=== PATIENT | male | born 1955 | race Caucasian/White ===

== ENCOUNTER 2019-02-19 18:25 | Inpatient (IN) | payer BC, OTHER, SELFPAY ==
[2019-02-19] MEDS ORDERED: Adacel (T-DAP) 0.5 ML SYRINGE ONE ×2 (18:31→19:26)
[2019-02-19 18:47] LABS: #Basophils 0.1 thou/uL (0.0-0.2); #Eosinphils 0.1 thou/uL (0.0-0.7); #Lymphocytes 5.1 thou/uL (1.20-3.40); #Monocytes 0.5 thou/uL (0.11-0.59); #Neutrophils 12.1 thou/uL (1.40-6.50); %Basophils 0.5 % (0.0-1.0); %Eosinophils 0.6 % (0.0-10.0); %Lymphocytes 28.6 % (21.0-51.0); %Monocytes 2.8 % (0.0-10.0); %Neutrophils 67.4 % (42.0-75.0); Hemoglobin 16.1 g/dL (14.0-18.0); Mean Corpuscular HGB CONC 33.2 g/dL (32.0-36.0); Mean Corpuscular Hemoglobin 29.3 pg (27.0-31.0); Mean Corpuscular Volume 88.2 fL (78.0-98.0); Mean Platelet Volume 7.7 fL (7.4-10.4); Platelet Count 306 thou/uL (130-400); RBC Distribution Width 12.2 % (11.5-14.5); Red Blood Cell (RBC) Count 5.52 mill/uL (4.70-6.10); White Blood Cell (WBC) Count 17.9 thou/uL (4.8-10.8)
--- NOTE | 2019-02-19 18:53 | CT ---
Head CT without contrast 02/19/2019: Comparison: None HISTORY: Injury, trauma, pain TECHNIQUE: Axial CT imaging at 5 mm intervals from vertex through skull base without contrast FINDINGS: The imaged paranasal sinuses and mastoid air cells are well-aerated. No displaced calvarial fracture. No intracranial hemorrhage, midline shift, or mass effect. IMPRESSION: No acute findings. Results called to Dr. Mart at 6:50 PM 02/19/2019
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
--- NOTE | 2019-02-19 18:57 | RAD ---
Portable frontal chest radiograph: 02/19/2019 COMPARISON: None HISTORY: Injury, trauma, pain FINDINGS: Lungs are clear. Heart and mediastinal contours appear within normal limits. There is eleva tion of the right hemidiaphragm. Supine imaging limits assessment for pneumothorax and pleural fluid. IMPRESSION: No acute findings.
[2019-02-19 19:01] LABS: Acetaminophen Less than 6.0 mcg/mL (10.0-30.0); Alcohol Less than 10 mg/dL (Less than 10); Salicylate Less than 8.0 mg/dL (15.0-30.0)
[2019-02-19 19:09] LABS: ALT (SGPT) 38 U/L (8-55); AST (SGOT) 27 U/L (5-34); Albumin 4.7 g/dL (3.4-4.8); Alkaline Phosphatase 86 U/L (40-110); Anion Gap 19 mmol/L (10-20); BUN (Urea Nitrogen) 20 mg/dL (8.4-25.7); Bilirubin, Total 0.4 mg/dL (0.2-1.2); Calc. Creatinine Clearance 0 mL/min (70-130); Calcium 8.8 mg/dL (7.8-10.44); Carbon Dioxide 18 mmol/L (23-31); Chloride 103 mmol/L (98-107); Estimated GFR-MDRD 49; Globulin 3.5 g/dL (2.4-3.5); Glucose 186 mg/dL (80-115); Potassium 3.9 mmol/L (3.5-5.1); Protein, Total 8.2 g/dL (5.8-8.1); Sodium 136 mmol/L (136-145)
--- NOTE | 2019-02-19 19:23 | CT ---
CT OF CHEST, ABDOMEN AND PELVIS, THORACIC SPINE, LUMBAR SPINE: 02/19/19 COMPARISON: None. HISTORY: Injury, trauma, pain. TECHNIQUE: Axial CT imaging obtained at 5 mm intervals from the thoracic inlet through the pubic symphysis with IV contrast. Coronal and sagittal reformatted imaging obtained. FINDINGS: No lymphadenopathy is appreciated within the chest. The vascular structures of the chest appear paten t. No pneumothorax is evident on either side. There is mild linear density within the posterior inferior aspect of bilateral lower lobes suggesting volume loss. Incidental note is made of a pulmonary nodule within the lateral aspect of the left upper lobe inferi gary on image 37 measuring approximately 7 mm. No endobronchial lesion is evident on this exam. The extraspinal osseous structures of the chest demonstrate no acute findings. No free intraperitoneal air or fluid. There are a few scattered tiny hypodensities within the right lobe of the liver, too small to charact erize. No evidence for splenic or hepatic laceration. Gallbladder unremarkable. Pancreas and adrenal glands are unremarkable. Bilateral kidneys are unremarkable. There is a fat containing inguinal iveth ia on the right. Limited assessment of the bowel without oral contrast media appears grossly unremarkable. The vascula r structures of the abdomen/pelvis appear patent. There is scattered atherosclerotic calcification o f the abdominal aorta. Extraspinal osseous structures of the abdomen/pelvis demonstrate no evidence for fracture of the infe rior or superior pubic ramus on either side. Neither hip is dislocated. No widening of the sacroiliac joints or pubic symphysis. No evidence for a sacral fracture. THORACIC SPINE: No displaced fracture or evidence of dislocation is seen. LUMBAR SPINE: There is prominent degenerative change at the lumbosacral junction with mild anterolisthesis of L5 o n S1 secondary to bilateral L5 pars defects. No acute osseous abnormality noted within the lumbar spi ne. IMPRESSION: 1. No acute findings within the chest, abdomen, pelvis, thoracic spine or lumbar spine. 2. 7 mm pulmonary nodule within the left upper lobe for which follow-up CT examination of the est in six months is advised. 3. Bilateral L5 pars defects with mild anterolisthesis of L5 on S1 and associated degenerative e nd plate change. 4. Results called to Dr. Mart at 7:02 p.m., 02/19/19. Code CR POS: OFF
[2019-02-19] MEDS ORDERED: Fentanyl 100 MCG/2 ML VIAL ONE ×2 (19:29→20:17)
--- NOTE | 2019-02-19 19:37 | RAD ---
THREE VIEWS OF THE RIGHT HAND: 02/19/19 COMPARISON: None. HISTORY: Injury, trauma, pain. FINDINGS: There is degenerative change involving the first carpometacarpal joint. The distal phalanx of the sec ond digit is partially obscured by pulse oximeter. No displaced fracture or dislocation is evident. IMPRESSION: No displaced fracture or dislocation seen. POS: [facility]
--- NOTE | 2019-02-19 19:39 | RAD ---
LEFT HAND THREE VIEWS: 02/19/19 HISTORY: Injury, trauma, pain. FINDINGS: There is multiple focal prominent degenerative change involving the metacarpophalangeal joints as wel l as the distal and proximal interphalangeal joints. There is displaced fracture or evidence of dislo cation. There is prominent joint space narrowing with subchondral sclerosis involving the first metac arpophalangeal joint. IMPRESSION: No displaced fracture or evidence of dislocation. POS: [facility]
--- NOTE | 2019-02-19 19:40 | RAD ---
TWO VIEWS OF THE RIGHT KNEE 02/19/19 COMPARISON: None. HISTORY: Injury, trauma, pain. FINDINGS: There is no knee joint effusion. There is mild posterior patellar osteophyte formation. There is mild narrowing of the medial compartment. IMPRESSION: No acute fracture or dislocation. POS: [facility]
--- NOTE | 2019-02-19 19:41 | RAD ---
TWO VIEWS OF THE LEFT KNEE: 02/19/19 COMPARISON: None. HISTORY: Injury, trauma, pain. FINDINGS: There is mild enthesophyte formation at the insertion of the quadriceps tendon. No knee joint effusio n. No displaced fracture or dislocation. IMPRESSION: No acute osseous abnormality. POS: [facility]
[2019-02-19] MEDS ORDERED: Ketorolac Tromethamine 30 MG/ML VIAL ONE (20:17)
[2019-02-19] MEDS ORDERED: HYDROmorphone 0.5 MG/0.5 ML SYRINGE ONE (21:11)
[2019-02-19 21:21] LABS: Bacteria/HPF None Seen HPF (None Seen); Bilirubin Negative (Negative); Blood, Urine 1+ (Negative); Clarity Clear (Clear); Glucose, Urine (Dipstick) Normal (Negative); Leukocyte Negative Leu/uL (Negative); Nitrite Negative (Negative); Protein, Urine (Dipstick) 10 mg/dL (Neg-Trace); RBC/HPF None Seen HPF (0-3); Squamous Epithelial None Seen HPF (0-3); Urobilinogen Normal mg/dL (Less than 2); WBC/HPF 0-3 HPF (0-3)
[2019-02-19] MEDS ORDERED: Dextrose 50% Abboject 50 ML SYRINGE SLOW IVP PRN (21:29)
[2019-02-19] MEDS ORDERED: Ondansetron PF 4 MG/2 ML Vial IVP PRN (21:29)
[2019-02-19] MEDS ORDERED: hydrALAZINE 20 MG/ML VIAL SLOW IVP PRN (21:29)
[2019-02-19] MEDS ORDERED: Dextrose 5% in Water 1,000 ML IV PRN (21:29)
[2019-02-19 21:30] LABS: Amphetamine Not Detected (NotDetected); Barbiturates Screen Not Detected (NotDetected); Benzodiazepine Screen Not Detected (NotDetected); Cocaine Metabolite Screen Not Detected (NotDetected); Medtox Control Line Valid? VALID (VALID); Medtox Reader # READER 4; Methadone Not Detected (NotDetected); Methamphetamine Not Detected (NotDetected); Opiate Screen Not Detected (NotDetected); Oxycodone Screen Not Detected (NotDetected); Phencyclidine (PCP) Not Detected (NotDetected); THC/Cannabinoid Screen Not Detected (NotDetected); Tricyclic Screen Not Detected (NotDetected)
[2019-02-19] MEDS ORDERED: Gabapentin 300 MG CAP PO PRN (21:32)
[2019-02-19] MEDS ORDERED: Acetaminophen 500 MG TAB PO PRN (21:32)
[2019-02-19] MEDS ORDERED: traMADol HCl 50 MG TAB PO PRN (21:32)
[2019-02-19 21:38] LABS: Actual Bicarbonate (HCO3a) 23.4 mEq/L (22-28); Analyzer IN Cardio ER; Base Excess (BEa) -2.4 mEq/L (-2.0 to +3.0); CO2 Tension 44.1 mmHg (35.0-45.0); Calcium, Ionized 1.13 mmol/L (1.12-1.30); Carboxyhemoglobin (COHb) 0.3 gm% (0.0-3.0); Hemoglobin (Hb) 13.8 g/dL (14.0-18.0); O2 Tension (PaO2) 68.5 mmHg (> 80.0); Potassium - ABG Lab 3.66 mmol/L (3.70-5.30); pH, Arterial 7.34 (7.35-7.45)
[2019-02-19 23:03] LABS: ALV-art Gradient 76.015 (0-20); Puncture Site RRA
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
[2019-02-20 01:50] VITALS: BMI 29.8
[2019-02-20] MEDS: Sodium Chloride 0.9% 1,000 ML IV SCH ×2 (07:46→20:27)
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
[2019-02-20 08:00] LABS: #Eosinphils 0.1 thou/uL (0.0-0.7); #Lymphocytes 3.1 thou/uL (1.20-3.40); #Monocytes 1.2 thou/uL (0.11-0.59); #Neutrophils 7.1 thou/uL (1.40-6.50); %Basophils 0.3 % (0.0-1.0); %Eosinophils 0.5 % (0.0-10.0); %Lymphocytes 26.8 % (21.0-51.0); %Monocytes 10.4 % (0.0-10.0); Hemoglobin 14.3 g/dL (14.0-18.0); Mean Corpuscular HGB CONC 32.5 g/dL (32.0-36.0); Mean Corpuscular Hemoglobin 29.1 pg (27.0-31.0); Mean Corpuscular Volume 89.4 fL (78.0-98.0); Mean Platelet Volume 7.7 fL (7.4-10.4); Platelet Count 265 thou/uL (130-400); RBC Distribution Width 12.2 % (11.5-14.5); Red Blood Cell (RBC) Count 4.93 mill/uL (4.70-6.10); White Blood Cell (WBC) Count 11.5 thou/uL (4.8-10.8)
[2019-02-20 08:17] LABS: Anion Gap 13 mmol/L (10-20); BUN (Urea Nitrogen) 13 mg/dL (8.4-25.7); CK (CPK) 3992 U/L (30-200); Calc. Creatinine Clearance 94 mL/min (70-130); Calcium 8.5 mg/dL (7.8-10.44); Carbon Dioxide 24 mmol/L (23-31); Chloride 105 mmol/L (98-107); Estimated GFR-MDRD 81; Glucose 98 mg/dL (80-115); Magnesium 1.9 mg/dL (1.6-2.6); Phosphorus 2.9 mg/dL (2.3-4.7); Potassium 3.9 mmol/L (3.5-5.1); Sodium 138 mmol/L (136-145)
[2019-02-20] MEDS: Amlodipine 10 MG TAB PO SCH (09:19)
[2019-02-20] MEDS: Famotidine/PF 20 mg/2ml Vial SLOW IVP SCH ×2 (09:19→20:27)
[2019-02-20] MEDS: Polyethylene Glycol 3350 17 GM Packet PO SCH (09:34)
--- NOTE | 2019-02-20 09:42 | PDOC.EVN ---
Event Note - Event Note Event Note: Patient seen and examined. Agree with PA note and H&P. Plan move to surgical floor. Continue hydration for mild rhabdo.
[2019-02-20] MEDS ORDERED: Scopolamine 1.5 mg/72 hour Patch TD SCH (10:15)
[2019-02-20] MEDS: Ibuprofen 600 MG TAB PO PRN ×2 (12:18→20:25)
[2019-02-20] MEDS: Cyclobenzaprine 10 MG TAB PO PRN ×2 (12:19→20:26)
[2019-02-20] MEDS: Acetaminophen 325 MG TAB PO SCH ×3 (12:19→23:56)
[2019-02-20] MEDS: traMADol HCl 50 MG TAB PO PRN ×2 (16:46→23:56)
[2019-02-20] MEDS: Senokot S 8.6-50 MG TAB PO SCH (20:26)
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
[2019-02-21] MEDS: Sodium Chloride 0.9% 1,000 ML IV SCH ×2 (05:15→10:30)
[2019-02-21] MEDS: traMADol HCl 50 MG TAB PO PRN ×2 (05:15→12:37)
[2019-02-21] MEDS: Acetaminophen 325 MG TAB PO SCH ×2 (05:16→12:37)
[2019-02-21 06:31] LABS: Anion Gap 10 mmol/L (10-20); BUN (Urea Nitrogen) 9 mg/dL (8.4-25.7); CK (CPK) 2477 U/L (30-200); Calc. Creatinine Clearance 104 mL/min (70-130); Calcium 8.1 mg/dL (7.8-10.44); Carbon Dioxide 25 mmol/L (23-31); Chloride 109 mmol/L (98-107); Estimated GFR-MDRD Greater than 90; Glucose 97 mg/dL (80-115); Sodium 140 mmol/L (136-145)
[2019-02-21] MEDS ORDERED: Aspirin 81 mg Enteric Coated Tablet PO SCH (09:00)
[2019-02-21] MEDS: Polyethylene Glycol 3350 17 GM Packet PO SCH (09:50)
[2019-02-21] MEDS: Famotidine/PF 20 mg/2ml Vial SLOW IVP SCH (09:50)
[2019-02-21] MEDS: Senokot S 8.6-50 MG TAB PO SCH (09:50)
[2019-02-21] MEDS: Amlodipine 10 MG TAB PO SCH (09:51)
[2019-02-21] MEDS: Cyclobenzaprine 10 MG TAB PO PRN (10:06)
[2019-02-21 12:54] VITALS: BP 163/74; TEMP 97.6
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
== END 2019-02-21 13:04 | disposition home or self-care (01) | DRG 683 ==
LOC: ERS 18:25 → ERHOLD 22:27 → 2NO 02-20 01:35 → SJJU 02-20 13:29
PROVIDERS: ADMIT Surgery; ATTEND Surgery
DX: N17.9 Acute kidney failure, unspecified (principal); M62.82 Rhabdomyolysis; R09.02 Hypoxemia; R00.0 Tachycardia, unspecified; I10 Essential (primary) hypertension; R91.1 Solitary pulmonary nodule; T14.8XXA Other injury of unspecified body region, initial encounter; R40.2412 Glasgow coma scale score 13-15, at arrival to emergency department; V59.88XA Occupant (driver) (passenger) of pick-up truck or van injured in other specified transport accidents, initial encounter; Y93.89 Activity, other specified; Y92.488 Other paved roadways as the place of occurrence of the external cause
CPT/HCPCS: 36415; 70450; 71045; 71260; 72125; 74177; 80048; 80053; 80306; 80307; 81003; 81015; 82550; 82805; 83735; 84100; 84443; 85025; 86850; 86900; 86901; 90471; 90715; 93005; 96360; 96361; 96365; 96375; 96376; 99292; G0390; J0690; J1170; J1885; J3010; S0028